=== PATIENT | female | born 1935 | race Caucasian/White ===

== ENCOUNTER 2016-11-30 21:20 | Inpatient (IN) | payer OTHER, MEDICAID ==
[~2016-11-30] VITALS: Ht 165.1 cm; Wt 60.3 kg
[~2016-11-30 21:20] MED LIST: ASPI81CT89 PO; DONE10TA3 PO; MEMA10TA PO
[2016-11-30 21:21] VITALS: BP 131/76
--- NOTE | 2016-11-30 21:33 | NUR ---
LYNN ADAMSR TO ER BED 8
--- NOTE | 2016-11-30 21:40 | NUR ---
PT IS 81/F BIB DAUGHTER TO ED WITH C/O DIZZINESS , DIFF OF BREATHING , WEAKNESS STARTED TODAY 1000 HOURS, CHEST PAIN IN THE MORNING. DENIES N/V/D; SKIN IS PINK/WARM/DRY; AAOX4 WITH EVEN AND STEADY GAIT; LUNGS CLEAR BL; HR EVEN AND REGULAR; PT DENIES ANY FEVER OR COUGH AT THIS TIME; PATIENT STATES PAIN OF 0/10 AT THIS TIME; VSS; PATIENT POSITIONED FOR COMFORT; HOB ELEVATED; BEDRAILS UP X2; BED DOWN. ER MD MADE AWARE OF PT STATUS.
--- NOTE | 2016-11-30 21:43 | NUR ---
Patient being evaluated by physician.
[2016-11-30] MEDS ORDERED: NACL 0.9% 1,000 ML IV ONE ×2 (21:47→23:50)
[2016-11-30 22:14] LABS: BASOPHILS # (AUTO) 0.2 K/uL (0.00-0.22); BASOPHILS % (AUTO) 2.6 % (0.0-2.0); EOSINOPHILS # (AUTO) 0.1 K/uL (0-0.4); EOSINOPHILS % (AUTO) 0.9 % (0.0-4.0); HEMATOCRIT 37.2 % (36-48); HEMOGLOBIN 11.8 g/dL (12.0-16.0); LYMPHOCYTES # (AUTO) 1.9 K/uL (2.5-16.5); LYMPHOCYTES % (AUTO) 28.2 % (20.5-51.1); MEAN CORPUSCULAR HEMOGLOBIN 28 pg (27-31); MEAN CORPUSCULAR HGB CONC 32 g/dL (33-37); MEAN CORPUSCULAR VOLUME 87 fL (80-94); MONOCYTES # (AUTO) 0.3 K/uL (0.8-1.0); MONOCYTES % (AUTO) 4.7 % (1.7-9.3); NEUTROPHILS # (AUTO) 4.1 K/uL (1.8-7.7); PLATELET COUNT (AUTO) 291 K/uL (140-450); RED BLOOD CELL COUNT(AUTO) 4.28 MIL/uL (4.20-5.40); RED CELL DISTRIBUTION WIDTH 15.9 % (11.6-13.7); WHITE BLOOD COUNT (AUTO) 6.6 K/uL (4.8-10.8)
[2016-11-30 22:26] LABS: ALANINE AMINOTRANSFERASE 15 U/L (14-59); ALBUMIN 3.5 g/dL (3.4-5.0); ALKALINE PHOSPHATASE 93 U/L (46-116); ANION GAP 15.8 (8-16); ASPARTATE AMINOTRANSFERASE 21 U/L (15-37); CALCIUM 8.9 mg/dL (8.5-10.1); CARBON DIOXIDE 25.3 mmol/L (21-32); CHLORIDE 105 mmol/L (98-107); CREATININE 1.1 mg/dL (0.6-1.3); GLUCOSE 107 mg/dL (74-106); POTASSIUM 4.1 mmol/L (3.5-5.1); PROTHROMBIN TIME 10.3 secs (10.8-13.4); SODIUM SERUM 142 mmol/L (136-145); TOTAL BILIRUBIN 0.4 mg/dL (0.0-1.0); TOTAL PROTEIN, SERUM 8.5 g/dL (6.4-8.2); UREA NITROGEN, BLOOD 16 mg/dL (7-18)
[2016-11-30 22:29] LABS: LACTIC ACID 2.1 mmol/L (0.4-2.0)
--- NOTE | 2016-11-30 23:15 | NUR ---
PT APPEARS TO BE RESTING IN BED COMFORTABLY. NO SOB NOTED AT THIS TIME. WILL CONTINUE TO MONITOR.
[2016-11-30 23:28] LABS: BILIRUBIN,URINE NEGATIVE (NEGATIVE); BLOOD, URINE NEGATIVE (NEGATIVE); COLOR,URINE YELLOW (YELLOW); LEUKOCYTE ESTERASE ,URINE TRACE (NEGATIVE); NITRITE, URINE NEGATIVE (NEGATIVE); PH,URINE 7.5 (5.0-9.0); PROTEIN,URINE NEGATIVE (NEGATIVE); UGLUCOSE NEGATIVE (NEGATIVE)
[2016-11-30 23:42] LABS: APPEARANCE,URINE HAZY (CLEAR)
[2016-11-30 23:43] LABS: BACTERIA,URINE 3+ /HPF (None Seen); MUCUS,URINE 4+ /LPF (None Seen); RBC,URINE 0-5 (RARE) /HPF (0-5); SQUAMOUS EPITHELIAL CELL,UR 0-3 /LPF (0-3 (FEW)); URINE AMORPHOUS URATE 3+ /HPF (None Seen)
[2016-11-30] MEDS ORDERED: LEVOFLOXACIN 750 MG/D5W PREMIX 150 ML IV ONE (23:50)
[2016-12-01] MEDS ORDERED: ASPIRIN 325 MG TAB PO ONE
--- NOTE | 2016-12-01 00:26 | NUR ---
Patient will be admitted to care of DR MILLER. Admited to TELE. Will go to room 122B. Belongings list completed. Report to VIN JUNE.
--- NOTE | 2016-12-01 00:45 | NUR ---
PT ADMITTED TO UNIT FROM ED, PT BROUGHT VIA GURNEY, PT ABLE TO AMBULATE TO BED WITH ASSIST. PT IS AAOX4 ON ROOM AIR, NO SOB OR SIGN OF DISTRESS AT THIS TIME. SKIN INTACT, IV TO RAC PATENT AND INTACT, PT CONNECTED TO TELE MONITOR, ORIENTED TO ROOM AND CALL LIGHT. PTS DAUGHTER AT BEDSIDE, PT DENIES PAIN AT THIS TIME. PTS DAUGHTER STATED PATIENT WILL SOMETIMES WAKE UP IN MIDDLE OF NIGHT AND FORGET WHERE SHE IS AT, BED ALARM SET, INSTRUCTED PATIENT IF SHE NEEDS TO USE RESTROOM TO USE CALL LIGHT, PT VERBALIZED UNDERSTANDING. DISCUSSED PLAN OF CARE WITH PATIENT, PT AND DAUGHTER VERBALIZED UNDERSTANDING, SAFETY MEASURES CHECKED, CALL LIGHT WITHIN REACH. WILL CONTINUE TO MONITOR.
--- NOTE | 2016-12-01 02:10 | NUR ---
ASSISTED PATIENT UP TO RESTROOM, STEADY GAIT, ASSISTED PT BACK TO BED, PT RESTING COMFORTABLE, WILL CONTINUE TO CLOSELY MONITOR.
[2016-12-01 04:00] VITALS: BP 112/61
--- NOTE | 2016-12-01 04:20 | NUR ---
VITAL SIGNS STABLE, NO SIGN OF DISTRESS, CALL LIGHT WITHIN REACH. WILL CONTINUE TO MONITOR.
[2016-12-01] MEDS ORDERED: MORPHINE SULFATE 2 MG/ML SYR IVP PRN (04:45)
[2016-12-01] MEDS ORDERED: oxyCODONE/APAP 5/325 MG 1 TAB TAB PO PRN (04:45)
[2016-12-01] MEDS ORDERED: HYDROcodone/APAP 7.5/325 MG 1 TAB PO PRN (04:45)
[2016-12-01] MEDS ORDERED: LORazepam 1 MG TAB PO PRN (04:45)
[2016-12-01] MEDS ORDERED: HYDROmorphone 1 MG/ML AMP IVP PRN ×2 (04:45)
[2016-12-01] MEDS ORDERED: ONDANSETRON 4 MG/2 ML VIAL IM/IVP PRN (04:45)
[2016-12-01] MEDS ORDERED: DOCUSATE SODIUM 100 MG GELCAP PO PRN (04:45)
[2016-12-01] MEDS ORDERED: ACETAMINOPHEN 325 MG TAB PO PRN (04:45)
[2016-12-01] MEDS ORDERED: ZOLPIDEM 5 MG TAB PO PRN (04:45)
[2016-12-01 06:20] LABS: AMPHETAMINE, URINE NEG. ng/ml (NEG <=1000); BARBITURATE, URINE NEG. ng/ml (NEG <=200); BENZODIAZEPINE, URINE NEG. ng/mL (NEG <=200); CANNABINOID, URINE NEG. ng/mL (NEG <=50); COCAINE, URINE NEG. ng/mL (NEG <=300); OPIATE, URINE NEG. ng/mL (NEG <=2000); PHENCYCLIDINE SCREEN,URINE NEG. ng/mL (NEG <=25)
[2016-12-01] MEDS: NACL 0.9% 1,000 ML IV SCH ×2 (06:23→21:54)
[2016-12-01 06:39] LABS: INR 1.1 (0.8-1.2); PARTIAL THROMBOPLASTIN TIME 25.6 secs (22-35.6); PROTHROMBIN TIME 11.2 secs (10.8-13.4)
[2016-12-01 06:43] LABS: CHOL/HDL RATIO 2.8 (1-4.5); MAGNESIUM 1.8 mg/dL (1.8-2.4); THYROID STIMULATING HORMONE 2.43 uIU/mL (0.34-3.74)
--- NOTE | 2016-12-01 07:30 | NUR ---
ENDORSED PATIENT TO DAY RN AT BEDSIDE, PATIENT IN STABLE CONDITION
--- NOTE | 2016-12-01 07:31 | NUR ---
PT AWAKE ALERT AND ORIENTED X4, UPPER SORBIAN SPEAKING. BREATHING EVENLY AND UNLABORED. NO SIGNS OF ACUTE DISTRESS. SKIN IS WARM AND DRY. NO C/O ANY BOWEL BLADDER DISCOMFORT. DENIES OF ANY PAIN OR DISCOMFORT. ALL NEEDS ATTENDED. SAFETY PRECAUTIONS MAINTAINED. CALL LIGHT WITHIN REACH.
[2016-12-01 08:00] VITALS: BP 113/66
[2016-12-01] MEDS: PANTOPRAZOLE 40 MG INJ VIAL IVP SCH (08:21)
[2016-12-01] MEDS ORDERED: ALBUTEROL SULFATE/IPRATROPIU 3 ML SOL IH PRN (11:20)
--- NOTE | 2016-12-01 11:42 | NUR ---
FAXED INITIAL REVEIW TO [facility] [phone] PHONE ALEX [phone]
[2016-12-01 11:47] VITALS: BP 100/55
--- NOTE | 2016-12-01 11:47 | NUR ---
NEW ORDERS RECEIVED FROM DR. ERICKSON, NOTED AND CARRIED OUT.
[2016-12-01] MEDS ORDERED: MEMANTINE 10 MG TAB PO SCH (12:25)
--- NOTE | 2016-12-01 13:47 | NUR ---
PATIENT HAS BEEN SCREENED AND CATEGORIZED MODERATE NUTRITION RISK. PATIENT WILL BE SEEN WITHIN 3-5 DAYS OF ADMISSION. 12/03/16-12/05/[address]
[2016-12-01 16:00] VITALS: BP 103/56
--- NOTE | 2016-12-01 16:04 | NUR ---
NEW ORDERS RECEIVED FROM DR. ERICKSON, NOTED AND CARRIED OUT.
--- NOTE | 2016-12-01 19:26 | NUR ---
P AWAKE AND RESPONSIVE, NO SIGNS OF ACUTE DISTRESS. ENDORSED TO ONCOMING IT SECURITY SPECIALIST NURSE FOR CONTINUITY OF CARE.
--- NOTE | 2016-12-01 19:30 | NUR ---
RECEIVED REPORT FROM DAY RN AT BEDSIDE, PATIENT SITTING UP IN BED VISITING FAMILY AT BEDSIDE, PT AAOX4 ON ROOM AIR, NO SOB OR SIGN OF DISTRESS AT THIS TIME, IV TO RIGHT AC PATENT AND INTACT, SKIN INTACT, DENIES PAIN AT THIS TIME, DISCUSSED PLAN OF CARE WITH PATIENT, PT VERBALIZED UNDERSTANDING. CALL LIGHT WITHIN REACH, WILL CONTINUE TO MONITOR
[2016-12-01 20:00] VITALS: BP 106/62
[2016-12-01] MEDS: METOPROLOL 25 MG TAB PO SCH (21:00)
[2016-12-01] MEDS: SIMVASTATIN 10 MG TAB PO SCH (21:00)
[2016-12-01] MEDS: DONEPEZIL 10 MG TAB PO SCH (21:07)
[2016-12-01] MEDS: LEVOFLOXACIN 250 MG/D5 PREMIX 50 ML IV SCH (21:08)
--- NOTE | 2016-12-01 21:10 | NUR ---
PM MEDS ADMINISTERED, LOPRESSOR NOT ADMINISTERED FOR DECREASED BP, PT REFUSED SIMVISTATIN STATED TOO MANY PILLS. PATIENT TOLERATED OTHERS WELL, PT STATED SHE HAD HEADACHE, ADMINISTERED TYLENOL, ASSISTED UP TO RESTROOM, ASSISTED BACK TO BED, CALL LIGHT WITHIN REACH. WILL CONTINUE TO MONITOR, BED ALARM ON.
--- NOTE | 2016-12-01 22:30 | NUR ---
PT RESTING IN BED, NO SOB OR SIGN OF DISTRESS, CALL LIGHT WITHIN REACH WILL CONTINUE TO MONITOR.
[2016-12-02] VITALS (7 sets, daily range): BP systolic 105–139; BP diastolic 58–80
--- NOTE | 2016-12-02 00:10 | NUR ---
VITAL SIGNS STABLE, NO SOB OR SIGN OF DISTRESS, CALL LIGHT WITHIN REACH. WILL CONTINUE TO MONITOR.
--- NOTE | 2016-12-02 02:30 | NUR ---
PT SLEEPING, NO SIGN OF DISTRESS, WILL CONTINUE TO MONITOR.
--- NOTE | 2016-12-02 04:05 | NUR ---
VITAL SIGN STABLE, NO SIGN OF DISTRESS, CALL LIGHT WITHIN REACH. WILL CONTINUE TO MONITOR
--- NOTE | 2016-12-02 05:10 | NUR ---
PT GOT UP TO USE RESTROOM, PULLED OUT IV, PT REFUSING TO HAVE ANOTHER ONE AT THIS TIME, EXPLAINED TO PATIENT THE IMPORTANCE OF HAVING ONE, PT STILL REFUSING. PT STATED "ITS TOO MUCH PAIN, IM GOING HOME TODAY". CHARGE NURSE AWARE, CHARGE NURSE TALKED TO PT, PT STILL REFUSING, LET MD WOLFF KNOW, TALKED TO PATIENT, PT STILL REFUSING, MD STATED TO LET PT CALM DOWN A LITTLE. WILL CONTINUE TO MONITOR AND ATTEMPT TO START NEW IV.
--- NOTE | 2016-12-02 05:36 | NUR ---
PT STILL REFUSING IV, PT REPEATEDLY STATING SHE IS GOING HOME TODAY AND DOES NOT NEED HER IV. CHARGE NURSE AWARE.
[2016-12-02 05:38] LABS: BASOPHILS # (AUTO) 0.1 K/uL (0.00-0.22); BASOPHILS % (AUTO) 1.4 % (0.0-2.0); EOSINOPHILS # (AUTO) 0.1 K/uL (0-0.4); HEMATOCRIT 31.4 % (36-48); LYMPHOCYTES # (AUTO) 2.5 K/uL (2.5-16.5); LYMPHOCYTES % (AUTO) 41.5 % (20.5-51.1); MEAN CORPUSCULAR HEMOGLOBIN 28 pg (27-31); MEAN CORPUSCULAR HGB CONC 32 g/dL (33-37); MEAN CORPUSCULAR VOLUME 87 fL (80-94); MONOCYTES # (AUTO) 0.5 K/uL (0.8-1.0); NEUTROPHILS # (AUTO) 2.8 K/uL (1.8-7.7); NEUTROPHILS % (AUTO) 48.1 % (42.2-75.2); PLATELET COUNT (AUTO) 247 K/uL (140-450); RED BLOOD CELL COUNT(AUTO) 3.63 MIL/uL (4.20-5.40); RED CELL DISTRIBUTION WIDTH 15.6 % (11.6-13.7); WHITE BLOOD COUNT (AUTO) 5.9 K/uL (4.8-10.8)
[2016-12-02 05:48] LABS: ANION GAP 14.7 (8-16); CARBON DIOXIDE 21.9 mmol/L (21-32); CHLORIDE 110 mmol/L (98-107); CREATININE 0.9 mg/dL (0.6-1.3); GLUCOSE 91 mg/dL (74-106); POTASSIUM 3.6 mmol/L (3.5-5.1); SODIUM SERUM 143 mmol/L (136-145); UREA NITROGEN, BLOOD 10 mg/dL (7-18)
--- NOTE | 2016-12-02 07:24 | NUR ---
ASSUMED CONTINUITY OF CARE. NO SIGNS AND SYMPTOMS OF ACUTE DISTRESS NOTED. INITIAL ASSESSMENT DONE. NO IV ACCESS. REFUSED IV INSERTION. KEEP COMFORTABLE ON BED. EXPLAINED DIAGNOSIS, PLAN OF CARE, PAIN MANAGEMENT TEACHING, USE OF CALL LIGHT/BED/TV/BATHROOM. VERBALIZED UNDERSTANDING. FALL PRECAUTION APPLIED. CALL LIGHT WITHIN REACH.
--- NOTE | 2016-12-02 07:34 | NUR ---
ENDORSED PATIENT TO DAY CTE TEACHER AT BEDSIDE, PATIENT IN STABLE CONDITION, CTE TEACHER AWARE OF NO IV ACCESS. PT STILL REFUSING.
[2016-12-02] MEDS ORDERED: LORazepam 2 MG/ML VIAL IVP ONE (08:20)
--- NOTE | 2016-12-02 08:20 | NUR ---
PT CAME FOR PT. PT TREATMENT. TOLERATED WELL. NO SOB, NOTED.
[2016-12-02] MEDS: METOPROLOL 25 MG TAB PO SCH ×2 (08:27→20:35)
[2016-12-02] MEDS: LISINOPRIL 5 MG TAB PO SCH (08:27)
[2016-12-02] MEDS: LACTOBACILLUS RHAMNOSUS GG 1 EACH CAP PO SCH (08:27)
[2016-12-02] MEDS: ASPIRIN 81 MG TAB.CHEW PO SCH (08:27)
[2016-12-02] MEDS: MEMANTINE 10 MG TAB PO SCH (08:27)
[2016-12-02] MEDS: PANTOPRAZOLE 40 MG INJ VIAL IVP SCH (08:32)
[2016-12-02] MEDS: RIVASTIGMINE TP SCH (08:32)
[2016-12-02] MEDS ORDERED: NOREPINEPHRINE 4 MG in DEXTROSE 5% 250 ML IV PRN (08:40)
[2016-12-02] MEDS ORDERED: COMMUNICATION ORDER MC PRN (09:00)
[2016-12-02] MEDS ORDERED: MEMANTINE 10 MG TAB PO SCH (09:00)
[2016-12-02 09:21] LABS: T4 (THYROXINE) 4.3 ug/dL (4.5-12.0)
--- NOTE | 2016-12-02 10:42 | NUR ---
CM NOTE FAXED CONCURRENT REVIEW TO [facility] [phone] PHONE ALEX [phone]
--- NOTE | 2016-12-02 12:00 | NUR ---
VITALS SIGNS STABLE. NO C/O PAIN. WILL MONITOR.
[2016-12-02] MEDS: NACL 0.9% 1,000 ML IV SCH (14:05)
[2016-12-02 14:07] LABS: HEMOGLOBIN A1C 5.8 % (4.8-5.6)
--- NOTE | 2016-12-02 19:20 | NUR ---
BEDSIDE REPORT GIVEN TO NOEL MORRIS. IN STABLE CONDITION.
--- NOTE | 2016-12-02 19:30 | NUR ---
ASSUMED CARE OF PATIENT, AWAKE, ALERT AND ORIENTED WITH PERIOD OF FORGETFUL. FAMILY AT BEDSIDE. CALL LIGHT WITHIN REACH.
--- NOTE | 2016-12-02 20:00 | NUR ---
CARE BOARD UPDATED NOTED. PLAN OF CARE DISCUSSED WITH PATIENT AND FAMILY MEMBER, VERBALIZED UNDERSTANDING WELL. VITAL SIGNS STABLE. AFEBRILE NOTED. CALL LIGHT WITHIN REACH.
[2016-12-02] MEDS: LEVOFLOXACIN 250 MG/D5 PREMIX 50 ML IV SCH (20:25)
[2016-12-02] MEDS: DONEPEZIL 10 MG TAB PO SCH (20:34)
[2016-12-02] MEDS: SIMVASTATIN 10 MG TAB PO SCH (20:35)
--- NOTE | 2016-12-02 23:48 | NUR ---
GOT CONFUSED, OUT OF THE ROOM AGITATED WITH PERSONAL BELONGINGS AND WANTING TO LEAVE TO GO HOME. EXPLAINED TO PATIENT AND REORIENTED, ESCORTED BACK TO ROOM-122.
[2016-12-03] MEDS ORDERED: LEVOFLOXACIN 750 MG/D5W PREMIX 150 ML IV SCH
[2016-12-03 04:06] VITALS: BP 124/56
--- NOTE | 2016-12-03 04:08 | NUR ---
SLEEPING WELL. NO COMPLAINS. CALL LIGHT WITHIN REACH.
[2016-12-03] MEDS: NACL 0.9% 1,000 ML IV SCH (06:45)
--- NOTE | 2016-12-03 07:30 | NUR ---
RECEIVED PATIENT REPORT AT BEDSIDE FROM NIGHT NURSE. PATIENT IS ABLE TO FOLLOW COMMANDS AND IS AAOX2. PATIENT SHOWS NO S/S OF DISTRESS ON ROOM AIR. PATIENT REFUSES IV ACCESS. PATIENT SKIN IS INTACT. EXPLAINED PLAIN OF CARE TO PATIENT. PATIENT VERBALIZED UNDERSTANDING. PATIENT ON TELE MONITORING. PATIENT BED IS LOWERED WITH CALL LIGHT WITHIN REACH. WILL CONTINUE TO MONITOR.
--- NOTE | 2016-12-03 07:30 | NUR ---
ENDORSED CARE AT BEDSIDE WITH BERYL BANUELOS, PATIENT STABLE CONDITION.
[2016-12-03 08:00] VITALS: BP 126/80
[2016-12-03] MEDS ORDERED: LEVOFLOXACIN 250 MG TAB PO SCH (09:00)
[2016-12-03] MEDS: PANTOPRAZOLE 40 MG INJ VIAL IVP SCH (09:00)
[2016-12-03] MEDS: LISINOPRIL 5 MG TAB PO SCH (09:15)
[2016-12-03] MEDS: LACTOBACILLUS RHAMNOSUS GG 1 EACH CAP PO SCH (09:15)
[2016-12-03] MEDS: ASPIRIN 81 MG TAB.CHEW PO SCH (09:15)
[2016-12-03] MEDS: MEMANTINE 10 MG TAB PO SCH (09:15)
[2016-12-03] MEDS: METOPROLOL 25 MG TAB PO SCH (09:16)
--- NOTE | 2016-12-03 09:16 | NUR ---
WHILE ADMINISTERING MEDICATIONS PATIENT STATED SHE HAS NOT HAD ANYTHING TO EAT AND IS C/O ABD PAIN. WHEN ASKED IF SHE WOULD LIKE PAIN MEDICATION, PATIENT REFUSES. PATIENT ENCOURAGED TO TAKE MEDICATIONS HOWEVER SHE REFUSES. PATIENT MEDICATIONS ARE ALREADY OPENED WILL TRY AGAIN TO ENCOURAGE ADMINISTRATION OF MEDICATIONS.
[2016-12-03] MEDS: RIVASTIGMINE TP SCH (09:33)
--- NOTE | 2016-12-03 09:45 | NUR ---
PATIENT CONTINUE TO REFUSE ORAL MEDICATIONS. WILL DISCARD.
[2016-12-03] MEDS ORDERED: SIMV20TA1 PO (10:10)
--- NOTE | 2016-12-03 10:10 | NUR ---
CM NOTE FAXED CONCURRENT REVIEW AND ORDER FOR HOME HEALTH TO [facility] [phone] PHONE ALEX [phone]
--- NOTE | 2016-12-03 10:30 | NUR ---
PATIENT BEING SEEN BY DR. ZIEGLER SHOWS NO S/S OF DISTRESS ON ROOM AIR. PATIENT C/O ABD PAIN. DR AWARE. DR STATES OKAY TO DISCHARGE.
[2016-12-03] MEDS ORDERED: LEVO750T2 PO (10:37)
[2016-12-03] MEDS ORDERED: DONE10TA3 PO (11:01)
[2016-12-03 12:00] VITALS: BP 127/70
--- NOTE | 2016-12-03 12:00 | NUR ---
PATIENT CALLED FAMILY FOR COMPLIANCE ADMINISTRATOR TODAY TO DISCHARGE. PATIENT IS IN BED AND SHOWS NO S/S OF DISTRESS ON ROOM AIR.
--- NOTE | 2016-12-03 13:07 | NUR ---
KENNY ESPINOSA SPOKE WITH KENNY JOHNSON OF [facility] [phone] AND SHE SAID PATIENT'S HOME HEALTH HAS BEEN SET UP WITH [facility] [phone], AUTHORIZATION# [id number], TO START WHEN PATIENT IS DISCHARGED. FAXED THE ORDER TO [facility] [phone]. SPOKE WITH CHATO OF [facility] [phone] WHO CONFIRMED THAT THEY RECEIVED THE REFERRAL AND INFORMED HER THAT PATIENT WILL BE DISCHARGED TODAY. NURSE KHUSHBU MENARD
--- NOTE | 2016-12-03 13:10 | NUR ---
SPOKE WITH PATIENT FAMILY THEY STATE THEY ARE ON THEIR WAY.
--- NOTE | 2016-12-03 13:30 | NUR ---
PT IS SITTING IN CHAIR AND SHOWS NO S/S OF DISTRESS ON ROOM AIR. WILL CONTINUE TO MONITOR.
--- NOTE | 2016-12-03 14:40 | NUR ---
PATIENT HAS BEEN DISCHARGED. ALL DISCHARGE INSTRUCTIONS AND PRESCRIPTIONS GIVEN TO PATIENT AND FAMILY MEMBER. ALL PAPERWORK SIGNED BY PATIENTS DAUGHTER. PATIENT AGREED TO HAVE HER DAUGHTER SIGN FOR HER. ALL BELONGINGS AND PRESCRIPTIONS IN PATIENT POSSESSION. WRISTBANDS AND TELE MONITOR REMOVED. PATIENT AMB TO WHEELCHAIR WITH STEADY GAIT. PATIENT LEFT OUT OF UNIT WITH FAMILY PRESENT AT SIDE. PATIENT IN STABLE CONDITION.
== END 2016-12-03 14:40 | disposition home or self-care (01) | DRG 56 ==
LOC: MED 21:20 → MTU 12-01 00:04
PROVIDERS: ADMIT Family Medicine; ATTEND Family Medicine
DX: G30.9 Alzheimer's disease, unspecified (principal); G93.41 Metabolic encephalopathy; F02.81 Dementia in other diseases classified elsewhere, unspecified severity, with behavioral disturbance; N39.0 Urinary tract infection, site not specified; M94.0 Chondrocostal junction syndrome [Tietze]; R73.03 Prediabetes; E78.00 Pure hypercholesterolemia, unspecified; J45.909 Unspecified asthma, uncomplicated; Z86.73 Personal history of transient ischemic attack (TIA), and cerebral infarction without residual deficits; Z88.0 Allergy status to penicillin; Z91.14 Patient's other noncompliance with medication regimen; Z74.01 Bed confinement status; Z98.51 Tubal ligation status; Z79.82 Long term (current) use of aspirin; Z79.899 Other long term (current) drug therapy; Z87.01 Personal history of pneumonia (recurrent)
CPT/HCPCS: 36415; 71010; 80048; 80053; 80305; 81001; 82150; 82550; 83036; 83605; 83690; 83735; 83880; 84100; 84436; 84443; 84479; 84484; 85025; 85610; 85730; 87040; 87081; 87086; 93005; 96360; 96361; 99285; C9113; J1956; J3490; J7030; J7060; Q0092

== ENCOUNTER 2017-11-07 22:38 | Inpatient (IN) | payer OTHER, MEDICAID ==
[~2017-11-07] VITALS: Ht 160 cm; Wt 65.3 kg
[~2017-11-07 22:38] MED LIST changes: +DONE10TA10 PO; -DONE10TA3 PO; +LEVO750T2 PO; +SIMV20TA1 PO
[2017-11-07 22:42] VITALS: BP 130/81
--- NOTE | 2017-11-07 22:44 | NUR ---
TO BED # 6 AMBULATORY, REPORT GIVEN TO JC BANUELOS
--- NOTE | 2017-11-07 22:47 | NUR ---
Patient ambulated to bed 7 with family. RN evaluating patient at bedside.
--- NOTE | 2017-11-07 22:50 | NUR ---
PATIENT IS A 82 Y/O FEMALE WHO PRESENTS TO THE ED C/O CHEST PAIN. PT STATES THAT IT STARTED X30 MINUTES AGO. PT REPORTS 3/10 ACHING UPPER CHEST PAIN THAT DOES NOT RADIATE. PT REPORTS COUGH, DENIES N/V/D. PT AAOX4, RR EVEN/UNLABORED. PT REPOSITIONED FOR COMFORT, BED IN LOWEST POSITION. ER MD DR. WAGNER NOTIFIED. WILL CONTINUE TO MONITOR.
--- NOTE | 2017-11-07 22:53 | NUR ---
Dr. Jin evaluating patient at bedside.
[2017-11-07] MEDS ORDERED: NITROGLYCERIN 2% 1 GM PKT TP ONE (23:15)
[2017-11-07] MEDS ORDERED: MORPHINE SULFATE 4 MG/ML SYR IVP ONE (23:15)
[2017-11-07 23:30] LABS: BASOPHILS # (AUTO) 0.1 K/uL (0.00-0.22); BASOPHILS % (AUTO) 1.3 % (0.0-2.0); EOSINOPHILS # (AUTO) 0.1 K/uL (0-0.4); EOSINOPHILS % (AUTO) 1.8 % (0.0-4.0); HEMATOCRIT 30.2 % (36-48); HEMOGLOBIN 9.9 g/dL (12.0-16.0); LYMPHOCYTES # (AUTO) 2.4 K/uL (2.5-16.5); LYMPHOCYTES % (AUTO) 40.1 % (20.5-51.1); MEAN CORPUSCULAR HEMOGLOBIN 26 pg (27-31); MEAN CORPUSCULAR HGB CONC 33 g/dL (33-37); MEAN CORPUSCULAR VOLUME 78.6 fL (80-94); MONOCYTES # (AUTO) 0.5 K/uL (0.8-1.0); MONOCYTES % (AUTO) 8.5 % (1.7-9.3); NEUTROPHILS # (AUTO) 2.9 K/uL (1.8-7.7); NEUTROPHILS % (AUTO) 48.3 % (42.2-75.2); PLATELET COUNT (AUTO) 247 K/uL (140-450); RED BLOOD CELL COUNT(AUTO) 3.84 MIL/uL (4.20-5.40); RED CELL DISTRIBUTION WIDTH 16.9 % (11.6-13.7)
--- NOTE | 2017-11-07 23:32 | NUR ---
centura technical lead senior developer at bedside for CXR.
--- NOTE | 2017-11-07 23:35 | NUR ---
PT REFUSED MORPHINE.
[2017-11-07 23:39] LABS: ANION GAP 10.6 (8-16); CARBON DIOXIDE 28.2 mmol/L (21-32); CHLORIDE 105 mmol/L (98-107); CREATININE 1.1 mg/dL (0.6-1.3); GLUCOSE 92 mg/dL (74-106); POTASSIUM 3.8 mmol/L (3.5-5.1); SODIUM SERUM 140 mmol/L (136-145); UREA NITROGEN, BLOOD 25 mg/dL (7-18)
[2017-11-07 23:47] LABS: ALBUMIN 3.2 g/dL (3.4-5.0); ASPARTATE AMINOTRANSFERASE 17 U/L (15-37); TOTAL BILIRUBIN 0.2 mg/dL (0.0-1.0)
[2017-11-07 23:53] LABS: CREATINE KINASE MB 1.1 ng/mL (0-3.6)
[2017-11-07 23:54] LABS: CHOL/HDL RATIO 2.8 (1-4.5)
[2017-11-07] MEDS ORDERED: MEMA10TA PO (23:57)
[2017-11-07] MEDS ORDERED: HAL1 PO (23:57)
[2017-11-08 00:08] LABS: APPEARANCE,URINE CLEAR (CLEAR); BILIRUBIN,URINE NEGATIVE (NEGATIVE); BLOOD, URINE NEGATIVE (NEGATIVE); COLOR,URINE YELLOW (YELLOW); LEUKOCYTE ESTERASE ,URINE 1+ (NEGATIVE); NITRITE, URINE NEGATIVE (NEGATIVE); UGLUCOSE NEGATIVE (NEGATIVE)
[2017-11-08 00:17] LABS: RBC,URINE 0-5 (RARE) /HPF (0-5)
[2017-11-08 00:18] LABS: WBC,URINE 60-80 /HPF (0-5)
--- NOTE | 2017-11-08 00:35 | NUR ---
PATIENT IS RESTING AT THIS TIME. NO SIGNS OF DISTRESS.
[2017-11-08] MEDS ORDERED: cefTRIAXone 1,000 MG VIAL ONE (00:52)
[2017-11-08] MEDS ORDERED: ONDANSETRON 4 MG/2 ML VIAL IM/IVP PRN (01:00)
[2017-11-08] MEDS ORDERED: MORPHINE SULFATE 2 MG/ML SYR IVP PRN (01:00)
[2017-11-08] MEDS ORDERED: ACETAMINOPHEN 325 MG TAB PO PRN (01:00)
[2017-11-08] MEDS ORDERED: DOCUSATE SODIUM 100 MG GELCAP PO PRN (01:00)
[2017-11-08] MEDS ORDERED: HYDROcodone/APAP 7.5/325 MG 1 TAB PO PRN (01:00)
[2017-11-08 01:26] LABS: PROTHROMBIN TIME 10.4 secs (10.8-13.4)
[2017-11-08 01:31] LABS: BARBITURATE, URINE NEG. ng/ml (NEG <=200); BENZODIAZEPINE, URINE NEG. ng/mL (NEG <=200); CANNABINOID, URINE NEG. ng/mL (NEG <=50); COCAINE, URINE NEG. ng/mL (NEG <=300); OPIATE, URINE NEG. ng/mL (NEG <=2000); PHENCYCLIDINE SCREEN,URINE NEG. ng/mL (NEG <=25)
--- NOTE | 2017-11-08 01:31 | NUR ---
PT ARRIVED AT UNIT VIA GURNEY, PT AMBULATED TO BED, TOLERATED WELL, PT STABLE, NO DISTRESS NOTED, REPORT RECEIVED FROM ED NURSE NANDA BANUELOS, IV TO L AC 20G PATENT, INTACT, PT ON ROOM AIR NO SOB, PT DENIES ANY PAIN AT THIS MOMENT, ORIENT PT TO ROOM, CALL LIGHT, AND PHONE, MRSA SWAB TAKEN, INITIAL ASSESSMENT DONE, ALL SAFETY PRECAUTION MET, WILL CONTINUE TO MONITOR.
--- NOTE | 2017-11-08 01:35 | NUR ---
Patient will be admitted to care of DR. REDDING. Admited to TELE. Will go to room 110A. Belongings list completed. Report to EDUARDO BANUELOS.
[2017-11-08 01:39] LABS: CHOL/HDL RATIO 2.9 (1-4.5); FREE T4 (FREE THYROXINE) 0.84 ng/dL (0.76-1.46); MAGNESIUM 1.7 mg/dL (1.8-2.4); PHOSPHORUS 3.8 mg/dL (2.5-4.9); THYROID STIMULATING HORMONE 3.33 uIU/mL (0.34-3.74)
[2017-11-08 01:50] VITALS: BP 109/46
[2017-11-08] MEDS: NACL 0.9% 1,000 ML IV SCH ×2 (02:00→17:37)
[2017-11-08] MEDS ORDERED: NITROGLYCERIN 0.4 MG TAB SL PRN (02:00)
[2017-11-08] MEDS ORDERED: ALBUTEROL SULFATE/IPRATROPIU 3 ML SOL IH PRN (02:40)
--- NOTE | 2017-11-08 03:28 | NUR ---
PT LEFT UNIT TO RADIOLOGY FOR CT CHEST ANGIO W/WO CONTRAST, PT IN STABLE CONDITION, NO DISTRESS NOTED.
[2017-11-08 04:00] VITALS: BP 107/60
--- NOTE | 2017-11-08 04:08 | NUR ---
PT ARRIVED BACK FROM CT. PT STABLE, NO DISTRESS NOTED, CALL LIGHT WITHIN REACH, WILL CONTINUE TO MONITOR.
--- NOTE | 2017-11-08 07:22 | NUR ---
RECEIVED REPORT FROM THERMOFORMING OPERATOR RN. PT RESTING IN BED. A/O X4, VERBALIZES NEEDS. SKIN DRY AND WARM TO TOUCH. LUNGS CLEAR ON AUSCULTATION. ABDOMEN SOFT, ROUND AND NON-TENDER. ACTIVE BOWEL SOUND. RIGHT AC 20 G, INTACT. NS RUNNING AT 60 ML/HR. AMBULATORY. SCDS ON PLACE. DENIES PAIN. NO ACUTE RESP DISTRESS NOTED. KEPT HOB ELEVATED. BED IN LOW POSITION, LOCKED. WILL CONTINUE TO MONITOR.
--- NOTE | 2017-11-08 07:22 | NUR ---
ENDORSED PT TO DAY SHIFT NURSE CALLY BANUELOS, PT IN STABLE CONDITION, NO DISTRESS NOTED, CALL LIGHT WITHIN REACH.
[2017-11-08 08:00] VITALS: BP 97/54
[2017-11-08 08:29] LABS: BASOPHILS % (AUTO) 0.5 % (0.0-2.0); EOSINOPHILS # (AUTO) 0.1 K/uL (0-0.4); EOSINOPHILS % (AUTO) 1.6 % (0.0-4.0); HEMATOCRIT 26.3 % (36-48); HEMOGLOBIN 8.7 g/dL (12.0-16.0); LYMPHOCYTES % (AUTO) 38.2 % (20.5-51.1); MEAN CORPUSCULAR HEMOGLOBIN 26 pg (27-31); MEAN CORPUSCULAR HGB CONC 33 g/dL (33-37); MEAN CORPUSCULAR VOLUME 78.7 fL (80-94); MONOCYTES # (AUTO) 0.4 K/uL (0.8-1.0); MONOCYTES % (AUTO) 8.5 % (1.7-9.3); NEUTROPHILS # (AUTO) 2.6 K/uL (1.8-7.7); NEUTROPHILS % (AUTO) 51.2 % (42.2-75.2); PLATELET COUNT (AUTO) 227 K/uL (140-450); RED BLOOD CELL COUNT(AUTO) 3.34 MIL/uL (4.20-5.40); WHITE BLOOD COUNT (AUTO) 5.2 K/uL (4.8-10.8)
[2017-11-08 08:48] LABS: ANION GAP 12.3 (8-16); CHLORIDE 108 mmol/L (98-107); GLUCOSE 92 mg/dL (74-106); POTASSIUM 4.3 mmol/L (3.5-5.1); SODIUM SERUM 144 mmol/L (136-145); UREA NITROGEN, BLOOD 23 mg/dL (7-18)
[2017-11-08] MEDS: FERROUS SULFATE 325 MG TABEC PO SCH (08:57)
[2017-11-08] MEDS: METOPROLOL 25 MG TAB PO SCH ×2 (08:58→20:22)
[2017-11-08] MEDS: ECOTRIN 81 MG TABEC PO SCH (08:58)
[2017-11-08] MEDS: MAGNESIUM OXIDE 400 MG TAB PO SCH (08:59)
--- NOTE | 2017-11-08 08:59 | NUR ---
METOPROLOL AND LISINOPRIL NOT ADMINISTERED DUE TO LOW BP: 97/54. NURSE MADE AWARE.
[2017-11-08] MEDS ORDERED: LISINOPRIL 5 MG TAB PO SCH (09:00)
--- NOTE | 2017-11-08 11:41 | NUR ---
PT SLEEPING IN BED COMFORTABLY AT THIS TIME.
[2017-11-08] MEDS ORDERED: ASCORBIC ACID 500 MG TAB PO SCH (12:00)
[2017-11-08 12:01] VITALS: BP 91/46
[2017-11-08 16:00] VITALS: BP 109/59
--- NOTE | 2017-11-08 16:53 | NUR ---
ADMINISTERED MEDICATION PER ORDER. TOLERATING WELL. NO CHANGE IN LOC. WILL CONTINUE TO MONITOR.
[2017-11-08] MEDS ORDERED: ATORVASTATIN 20 MG TAB PO SCH (17:00)
--- NOTE | 2017-11-08 19:20 | NUR ---
RECEIVED REPORT FROM DAY SHIFT NURSE JUVE, PT IN BED WITH FAMILY AT BEDSIDE, NO SIGNS OF DISTRESS, CONNECTED BACK TO TELE SINCE PT REMOVED ELECTRODES. TOLD DURING REPORT THAT PT IS SHOWING SINGS OF CONFUSION, WILL CONTINUE TO MONITOR AND CONTINUE WITH FREQ CHECKS.
--- NOTE | 2017-11-08 19:20 | NUR ---
REPORT GIVEN TO CUSTODIAL MAINTENANCE WORKER RN FOR CONTINUITY OF CARE. PT ON STABLE CONDITION.
[2017-11-08 20:00] VITALS: BP 115/59
--- NOTE | 2017-11-08 20:22 | NUR ---
PT TOLERATED MEDICATION WELL, WILL CONTINUE TO MONITOR VS. WILL ENSURE FREQ CHECKS.
[2017-11-09] VITALS: BP 111/51
--- NOTE | 2017-11-09 00:19 | NUR ---
PLACED NEW IV ON LEFT HAND, 22 GAUGE, INTACT.
--- NOTE | 2017-11-09 02:10 | NUR ---
PT RESTING IN BED, CALL LIGHT WITHIN REACH, NO SIGNS OF DISTRESS.
[2017-11-09 04:00] VITALS: BP 104/59
--- NOTE | 2017-11-09 04:10 | NUR ---
PT IN BED, CALL LIGHT WITHIN REACH, WILL CONTINUE TO MONITOR AND CONTINUE FREQ CHECKS.
[2017-11-09 05:49] LABS: BASOPHILS % (AUTO) 0.2 % (0.0-2.0); EOSINOPHILS # (AUTO) 0.1 K/uL (0-0.4); EOSINOPHILS % (AUTO) 2.3 % (0.0-4.0); HEMATOCRIT 26.1 % (36-48); HEMOGLOBIN 8.7 g/dL (12.0-16.0); LYMPHOCYTES # (AUTO) 2.4 K/uL (2.5-16.5); LYMPHOCYTES % (AUTO) 48.4 % (20.5-51.1); MEAN CORPUSCULAR HEMOGLOBIN 26 pg (27-31); MEAN CORPUSCULAR HGB CONC 33 g/dL (33-37); MEAN CORPUSCULAR VOLUME 79.4 fL (80-94); MONOCYTES # (AUTO) 0.5 K/uL (0.8-1.0); NEUTROPHILS # (AUTO) 1.9 K/uL (1.8-7.7); NEUTROPHILS % (AUTO) 39.1 % (42.2-75.2); PLATELET COUNT (AUTO) 215 K/uL (140-450); RED BLOOD CELL COUNT(AUTO) 3.28 MIL/uL (4.20-5.40); RED CELL DISTRIBUTION WIDTH 16.9 % (11.6-13.7)
--- NOTE | 2017-11-09 06:26 | NUR ---
PT RESTING IN BED, WILL CONTINUE TO MONITOR, CALL LIGHT WITH IN REACH.
[2017-11-09 06:27] LABS: ANION GAP 12.9 (8-16); CHLORIDE 109 mmol/L (98-107); CREATININE 0.9 mg/dL (0.6-1.3); GLUCOSE 93 mg/dL (74-106); POTASSIUM 3.9 mmol/L (3.5-5.1); SODIUM SERUM 145 mmol/L (136-145); UREA NITROGEN, BLOOD 14 mg/dL (7-18)
--- NOTE | 2017-11-09 07:20 | NUR ---
ENDORSED PT TO DAY SHIFT NURSE SCHUYLER RN, PT STABLE, NO DISTRESS NOTED, CALL LIGHT WITHIN REACH.
--- NOTE | 2017-11-09 07:21 | NUR ---
RECEIVED REPORT FROM SUPPLY CRIB ATTENDANT NURSE. PATIENT LYING DOWN IN BED SLEEPING, AROUSABLE BY VOICE. NO DISTRESS NOTED. DENIES ANY PAIN. RESPIRATIONS EVEN, UNLABORED, ON ROOM AIR. AAOX4, CALM, COOPERATIVE, SKIN COLOR APPROPRIATE TO ETHNICITY, WARM TO TOUCH. SKIN IS INTACT. HAS DRY, NON-PRODUCTIVE COUGH. IV SITE INTACT, PATENT, RUNNING IVF PER MD ORDERS. LUNGS CTA ON ALL LOBES. ABDOMEN SOFT, NON-DISTENDED. REVIEWED PLAN OF CARE WITH PATIENT. PATIENT VERBALIZED UNDERSTANDING. SAFETY MEASURES IN PLACE, CALL LIGHT WITHIN REACH. WILL CONTINUE TO MONITOR.
[2017-11-09 08:00] VITALS: BP 108/62
[2017-11-09] MEDS: ECOTRIN 81 MG TABEC PO SCH (08:19)
[2017-11-09] MEDS: MAGNESIUM OXIDE 400 MG TAB PO SCH (08:19)
[2017-11-09] MEDS: METOPROLOL 25 MG TAB PO SCH (08:20)
[2017-11-09] MEDS: FERROUS SULFATE 325 MG TABEC PO SCH (08:20)
--- NOTE | 2017-11-09 08:25 | NUR ---
PATIENT SITTING DOWN IN BED WITH BREAKFAST TRAY IN FRONT. NO DISTRESS NOTED. DENIES ANY PAIN. SCHEDULED MEDICATIONS DUE GIVEN. SAFETY MEASURES IN PLACE, CALL LIGHT WITHIN REACH. WILL CONTINUE TO MONITOR.
[2017-11-09] MEDS ORDERED: ASCORBIC ACID 500 MG TAB PO SCH (09:00)
[2017-11-09] MEDS ORDERED: ATOR20TA40 PO (09:57)
[2017-11-09] MEDS ORDERED: FER325 PO (09:57)
[2017-11-09] MEDS ORDERED: ASPI-1173 PO (09:57)
[2017-11-09] MEDS ORDERED: VITC500 PO (09:57)
[2017-11-09] MEDS ORDERED: LEVO750T2 PO (09:59)
[2017-11-09] MEDS: NACL 0.9% 1,000 ML IV SCH (10:17)
--- NOTE | 2017-11-09 11:30 | NUR ---
PATIENT ABLE TO AMBULATE TO BATHROOM AND BACK TO BED INDEPENDENTLY WITH STEADY GAIT. NO DISTRESS NOTED. DENIES ANY PAIN. CONDITION UNCHANGED. WILL CONTINUE TO MONITOR.
--- NOTE | 2017-11-09 11:45 | NUR ---
DR. MORTENSEN Y AT BEDSIDE REVIEWING PLAN OF CARE WITH PATIENT. WILL CONTINUE TO MONITOR.
[2017-11-09 12:00] VITALS: BP 113/70
--- NOTE | 2017-11-09 14:10 | NUR ---
PATIENT SITTING IN BED COMFORTABLY. NO DISTRESS NOTED. NOTIFIED PATIENT THAT SHE WILL BE GOING HOME TODAY. PATIENT VERBALIZED UNDERSTANDING. PATIENT CALLED DAUGHTER AND DAUGHTER WILL COME PICK HER UP. WILL CONTINUE TO MONITOR.
--- NOTE | 2017-11-09 14:18 | NUR ---
SPOKE WITH ALEX FROM [facility]. SHE SAID TO FAX REVIEW TO HER. PATIENT DISCHARGED TODAY. ER REPORT , H&P AND PROGRESS NOTES FAXED TO [facility] [phone] PHONE ALEX [phone] NO DISCHARGE SUMMARY.
--- NOTE | 2017-11-09 14:58 | NUR ---
PATIENT HAS BEEN SCREENED AND CATEGORIZED MODERATE NUTRITION RISK. PATIENT WILL BE SEEN WITHIN 3-5 DAYS OF ADMISSION. 11/10/17 11/12/[address]
--- NOTE | 2017-11-09 17:05 | NUR ---
PATIENT SITTING IN BED COMFORTABLY. DAUGHTER AT BEDSIDE READY TO TAKE PATIENT HOME. DISCHARGE INSTRUCTIONS PROVIDED IN BULGARIAN, CLASSIFIED AD TAKER SERVICES OFFERED TO PATIENT BUT PREFERRED DAUGHTER TO TRANSLATE. FOLLOW-UP INSTRUCTIONS, NEW/CHANGED MEDICATIONS, DIET REGIMEN, AND DISEASE PROCESS OF UTI EXPLAINED TO PATIENT. ANSWERED ALL OF PATIENT/DAUGHTER'S QUESTIONS REGARDING DISCHARGE. IV SITE REMOVED WITH MINIMAL BLOOD AND LUMEN COMPLETELY INTACT. ID BANDS REMOVED. ALL BELONGINGS WITH PATIENT. ESCORTED PATIENT DOWN TO LOBBY VIA STEADY AMBULATION. PATIENT DISCHARGED TO HOME IN PRIVATE VEHICLE IN STABLE CONDITION AT THIS TIME.
[2017-11-10 08:22] LABS: FOLIC ACID 6.7 ng/mL (>3.0); T4 (THYROXINE) 5.8 ug/dL (4.5-12.0)
== END 2017-11-09 17:05 | disposition home or self-care (01) | DRG 280 ==
LOC: MED 22:38 → MTU 11-08 00:57
PROVIDERS: ADMIT General Practice; ATTEND General Practice
DX: I21.A1 Myocardial infarction type 2 (principal); N17.0 Acute kidney failure with tubular necrosis; E44.1 Mild protein-calorie malnutrition; N39.0 Urinary tract infection, site not specified; M94.0 Chondrocostal junction syndrome [Tietze]; Z88.0 Allergy status to penicillin; Z86.73 Personal history of transient ischemic attack (TIA), and cerebral infarction without residual deficits; G30.9 Alzheimer's disease, unspecified; F02.80 Dementia in other diseases classified elsewhere, unspecified severity, without behavioral disturbance, psychotic disturbance, mood disturbance, and anxiety; E78.5 Hyperlipidemia, unspecified; Z98.51 Tubal ligation status; D64.9 Anemia, unspecified; E83.42 Hypomagnesemia; Z68.25 Body mass index [BMI] 25.0-25.9, adult
CPT/HCPCS: 36415; 71045; 71275; 80048; 80053; 80305; 81001; 82150; 82550; 82553; 82607; 82728; 82746; 83036; 83540; 83690; 83735; 83880; 84100; 84436; 84439; 84443; 84479; 84484; 85025; 85045; 85379; 85610; 85730; 87081; 87086; 93005; 96365; 97140; 99291; J0696; J2270; J7030; J7060; Q0092; Q9967

== ENCOUNTER 2020-11-08 12:00 | Emergency (ER) | payer BC, MEDICAID ==
[~2020-11-08] VITALS: Ht 157.5 cm; Wt 86.2 kg
[~2020-11-08 12:00] MED LIST changes: -ASPI81CT89 PO; -DONE10TA10 PO; +EXE9.5T TD; +FERR324T11 PO; -LEVO750T2 PO; +QUET50TA PO; -SIMV20TA1 PO
[2020-11-08 12:12] VITALS: BP 106/66
--- NOTE | 2020-11-08 12:12 | NUR ---
Patient transferred to bed 9 via wheelchair by tech. RN evaluating the patient at bedside.
--- NOTE | 2020-11-08 12:26 | NUR ---
85/F bib daughter for evaluation of recent falls. Per daughter, pt fell yesterday and has fallen 3 times in the last 3 days with increased weakness. Daughter states the patient cannot tolerate standing anymore for long periods of time. Pt uses a front wheel walker to ambulate. Pt denies any pain at this time. Full ROM of both legs. No swelling noted to either knees. Pt is awake and alert with periods of confusion. Hx Alzhemier's, lives with daughter and her at home. Daughter at bedside.
--- NOTE | 2020-11-08 12:44 | NUR ---
Pt report given to Thelma Zavala. Transfer of care at this time.
--- NOTE | 2020-11-08 12:45 | NUR ---
Dr. Do at the bedside evaluating patient.
[2020-11-08] MEDS ORDERED: NACL 0.9% 1,000 ML IV ONE (13:00)
[2020-11-08] MEDS ORDERED: ACETAMINOPHEN 325 MG TAB PO ONE (13:00)
--- NOTE | 2020-11-08 13:26 | NUR ---
technical support assistant at the bedside
[2020-11-08 13:30] LABS: BASOPHILS # (AUTO) 0.1 K/uL (0.00-0.22); BASOPHILS % (AUTO) 2.1 % (0.0-2.0); EOSINOPHILS # (AUTO) 0.1 K/uL (0-0.4); EOSINOPHILS % (AUTO) 1.7 % (0.0-4.0); HEMATOCRIT 32.1 % (36-48); HEMOGLOBIN 10.3 g/dL (12.0-16.0); LYMPHOCYTES # (AUTO) 1.9 K/uL (2.5-16.5); LYMPHOCYTES % (AUTO) 27.4 % (20.5-51.1); MEAN CORPUSCULAR HEMOGLOBIN 24 pg (27-31); MEAN CORPUSCULAR HGB CONC 32 g/dL (33-37); MEAN CORPUSCULAR VOLUME 75.2 fL (80-94); MONOCYTES # (AUTO) 0.5 K/uL (0.8-1.0); MONOCYTES % (AUTO) 7.7 % (1.7-9.3); NEUTROPHILS # (AUTO) 4.2 K/uL (1.8-7.7); NEUTROPHILS % (AUTO) 61.1 % (42.2-75.2); PLATELET COUNT (AUTO) 331 K/uL (140-450); RED BLOOD CELL COUNT(AUTO) 4.28 MIL/uL (4.20-5.40); RED CELL DISTRIBUTION WIDTH 20.2 % (11.6-13.7); WHITE BLOOD COUNT (AUTO) 6.9 K/uL (4.8-10.8)
[2020-11-08 13:44] LABS: ANION GAP 17.2 (8-16); CARBON DIOXIDE 23.8 mmol/L (21-32); CHLORIDE 107 mmol/L (98-107); CREATININE 1.1 mg/dL (0.6-1.3); GLUCOSE 114 mg/dL (74-106); SODIUM SERUM 144 mmol/L (136-145); UREA NITROGEN, BLOOD 16 mg/dL (7-18)
[2020-11-08] MEDS ORDERED: ASPIRIN 81 MG TAB.CHEW PO ONE (13:55)
[2020-11-08 13:58] LABS: ALBUMIN 3.3 g/dL (3.4-5.0); ASPARTATE AMINOTRANSFERASE 17 U/L (15-37); THYROID STIMULATING HORMONE 1.21 uIU/mL (0.34-3.74); TOTAL BILIRUBIN 0.4 mg/dL (0.0-1.0)
[2020-11-08] MEDS ORDERED: QUET50TA PO ×2 (14:08→17:15)
--- NOTE | 2020-11-08 14:11 | NUR ---
Valerie specimen collected and taken to the lab. Patient tolerated procedure well.
--- NOTE | 2020-11-08 14:17 | NUR ---
Dr. Do at the bedside talking to patient/daughter.
[2020-11-08] MEDS ORDERED: ONDANSETRON 4 MG/2 ML VIAL IVP PRN (14:50)
[2020-11-08] MEDS ORDERED: POTASSIUM CHLORIDE 10 MEQ TABER PO PRN (14:50)
[2020-11-08] MEDS ORDERED: MAGNESIUM OXIDE 400 MG TAB PO PRN (14:50)
[2020-11-08] MEDS ORDERED: MAG SULF 2000 MG/WATER PREMIX 50 ML IV PRN (14:50)
[2020-11-08] MEDS ORDERED: HYDROcodone/APAP 5/325 MG 1 TAB TAB PO PRN (14:50)
[2020-11-08] MEDS ORDERED: IBUPROFEN 400 MG TAB PO PRN (14:50)
[2020-11-08] MEDS ORDERED: KCL 20 MEQ/WATER INJ PREMIX 200 ML IV PRN (14:50)
[2020-11-08] MEDS ORDERED: ACETAMINOPHEN 325 MG TAB PO PRN (14:50)
--- NOTE | 2020-11-08 15:15 | NUR ---
Patient assisted to the restroom to collect urine specimen. Patient back in bed, VSS, bed locked, side rail up and bed in the lowest position. Call light within reach. Patient's daughter at the bedside. urine specimen given to tag and label cutter.
[2020-11-08 15:41] LABS: APPEARANCE,URINE CLEAR (CLEAR); BILIRUBIN,URINE NEGATIVE (NEGATIVE); BLOOD, URINE NEGATIVE (NEGATIVE); COLOR,URINE YELLOW (YELLOW); LEUKOCYTE ESTERASE ,URINE TRACE (NEGATIVE); NITRITE, URINE NEGATIVE (NEGATIVE); UGLUCOSE NEGATIVE (NEGATIVE)
[2020-11-08 16:04] LABS: RBC,URINE NONE SEEN /HPF (0-5); WBC,URINE 0-5 /HPF (0-5)
--- NOTE | 2020-11-08 16:21 | NUR ---
Informed Anthony Ramirez of patient's second troponin level. No new orders at this time.
--- NOTE | 2020-11-08 16:45 | NUR ---
Patient resting comfortably in bed; VSS; call light within reach, bed in the lowest position, side rail up, and daughter at the bedside.
--- NOTE | 2020-11-08 17:07 | NUR ---
Dr. Boyer in ED speaking with family and evaluating patient.
[2020-11-08] MEDS ORDERED: cefTRIAXone 1,000 MG VIAL ONE (17:15)
[2020-11-08] MEDS ORDERED: CEPH-588 PO (17:15)
[2020-11-08 18:02] VITALS: BP 117/88
--- NOTE | 2020-11-08 18:21 | NUR ---
Patient discharged with v/s stable. Written and verbal after care instructions given and explained. Patient alert, oriented and verbalized understanding of instructions. Wheel Chair Assisted with to car. All questions addressed prior to discharge. ID band removed. Patient advised to follow up with PMD. Rx of keflex, seroquel given. Patient/daughter educated on indication of medication including possible reaction and side effects. Opportunity to ask questions provided and answered.
[2020-11-08] MEDS ORDERED: ZOLPIDEM 5 MG TAB PO PRN (21:00)
[2020-11-09] MEDS ORDERED: DOCUSATE SODIUM 100 MG GELCAP PO SCH (09:00)
== END 2020-11-08 15:04 | disposition admitted as inpatient to this hospital (09) ==
LOC: MED 12:00 → MMU 15:03 → UNDOADMIN 15:03 → MMU 15:41 → MTU 15:41 → UNDODISIN 17:47
DX: I24.9 Acute ischemic heart disease, unspecified (principal); R53.1 Weakness; F03.90 Unspecified dementia, unspecified severity, without behavioral disturbance, psychotic disturbance, mood disturbance, and anxiety; D64.9 Anemia, unspecified; M17.12 Unilateral primary osteoarthritis, left knee; Z88.0 Allergy status to penicillin; Z86.73 Personal history of transient ischemic attack (TIA), and cerebral infarction without residual deficits; Z20.822 Contact with and (suspected) exposure to COVID-19
CPT/HCPCS: 36415; 71045; 73030; 73562; 80053; 81001; 84443; 84484; 85025; 87426; 93005; 96361; 96365; 99285; J0696; J7030; J7060; 96374

== ENCOUNTER 2022-05-22 22:48 | Inpatient (IN) | payer BC, MEDICAID ==
[~2022-05-22] VITALS: Ht 157.5 cm; Wt 72.6 kg
[~2022-05-22 22:48] MED LIST changes: +CEPH-588 PO; -EXE9.5T TD; -FERR324T11 PO
[2022-05-22 22:52] VITALS: BP 110/74
--- NOTE | 2022-05-22 22:59 | NUR ---
PT W/C ASSISTED TO BED #2
--- NOTE | 2022-05-22 23:20 | NUR ---
David stuart in ED - 05/23/22 at 0641 by [id number] Patient A/Ox4, chest rise and fall symmetrical, resting in bed, no s/s of distress.
--- NOTE | 2022-05-22 23:21 | NUR ---
Patient is confused, chest rise and fall symmetrical, resting in bed, no s/s of distress.
[2022-05-22] MEDS ORDERED: NACL 0.9% 1,000 ML IV ONE (23:30)
[2022-05-22 23:45] LABS: BASOPHILS % (AUTO) 0.5 % (0.0-2.0); EOSINOPHILS # (AUTO) 0.1 K/uL (0-0.4); EOSINOPHILS % (AUTO) 1.1 % (0.0-4.0); HEMOGLOBIN 9.3 g/dL (12.0-16.0); LYMPHOCYTES # (AUTO) 2.2 K/uL (2.5-16.5); LYMPHOCYTES % (AUTO) 38.6 % (20.5-51.1); MEAN CORPUSCULAR HEMOGLOBIN 22 pg (27-31); MEAN CORPUSCULAR HGB CONC 31 g/dL (33-37); MEAN CORPUSCULAR VOLUME 70.5 fL (80-94); MONOCYTES # (AUTO) 0.5 K/uL (0.8-1.0); MONOCYTES % (AUTO) 9.5 % (1.7-9.3); NEUTROPHILS # (AUTO) 2.9 K/uL (1.8-7.7); NEUTROPHILS % (AUTO) 50.3 % (42.2-75.2); PLATELET COUNT (AUTO) 194 K/uL (140-450); RED BLOOD CELL COUNT(AUTO) 4.26 MIL/uL (4.20-5.40); RED CELL DISTRIBUTION WIDTH 21.3 % (11.6-13.7); WHITE BLOOD COUNT (AUTO) 5.7 K/uL (4.8-10.8)
[2022-05-23 00:23] LABS: ALBUMIN 2.8 g/dL (3.4-5.0); ANION GAP 12.1 (8-16); ASPARTATE AMINOTRANSFERASE 40 U/L (15-37); CARBON DIOXIDE 28.9 mmol/L (21-32); CHLORIDE 105 mmol/L (98-107); GLUCOSE 101 mg/dL (74-106); SODIUM SERUM 142 mmol/L (136-145); TOTAL BILIRUBIN 0.5 mg/dL (0.0-1.0); UREA NITROGEN, BLOOD 16 mg/dL (7-18)
--- NOTE | 2022-05-23 01:10 | NUR ---
Patient is confused, chest rise and fall symmetrical, resting in bed, no s/s of distress.
[2022-05-23 01:15] LABS: APPEARANCE,URINE CLEAR (CLEAR); BILIRUBIN,URINE NEGATIVE (NEGATIVE); BLOOD, URINE NEGATIVE (NEGATIVE); COLOR,URINE YELLOW (YELLOW); LEUKOCYTE ESTERASE ,URINE 3+ (NEGATIVE); NITRITE, URINE POSITIVE (NEGATIVE); PH,URINE 6.5 (5.0-9.0); UGLUCOSE NEGATIVE (NEGATIVE)
[2022-05-23 01:32] LABS: RBC,URINE 0-5 /HPF (0-5)
[2022-05-23] MEDS ORDERED: LEVOFLOXACIN 500 MG/D5W PREMIX 100 ML IV ONE (02:20)
--- NOTE | 2022-05-23 03:20 | NUR ---
Patient is confused, chest rise and fall symmetrical, resting in bed, no s/s of distress.
[2022-05-23] MEDS ORDERED: SIMV-372 PO (03:24)
[2022-05-23] MEDS ORDERED: MAG SULF 2000 MG/WATER PREMIX 50 ML IV PRN (03:25)
[2022-05-23] MEDS ORDERED: MORPHINE SULFATE 4 MG/ML SYR IVP PRN (03:25)
[2022-05-23] MEDS ORDERED: KCL 20 MEQ/WATER INJ PREMIX 200 ML IV PRN (03:25)
[2022-05-23] MEDS ORDERED: HYDROcodone/APAP 5/325 MG 1 TAB TAB PO PRN (03:25)
[2022-05-23] MEDS ORDERED: POTASSIUM CHLORIDE 10 MEQ TABER PO PRN (03:25)
[2022-05-23] MEDS ORDERED: MAGNESIUM OXIDE 400 MG TAB PO PRN (03:25)
[2022-05-23] MEDS: NACL 0.9% 1,000 ML IV SCH ×2 (03:25→15:55)
[2022-05-23] MEDS ORDERED: ACETAMINOPHEN 325 MG TAB PO PRN (03:25)
--- NOTE | 2022-05-23 05:15 | NUR ---
Patient is confused, chest rise and fall symmetrical, resting in bed, no s/s of distress.
--- NOTE | 2022-05-23 06:42 | NUR ---
Patient is confused, chest rise and fall symmetrical, resting in bed, no s/s of distress.
--- NOTE | 2022-05-23 07:18 | NUR ---
Change of shift report given to AM shift nurse Anjana RN. AM shift nurse Anjana RN verbalized understanding of report, no further questions.
[2022-05-23] MEDS ORDERED: ECOTRIN 81 MG TABEC PO SCH (08:29)
[2022-05-23] MEDS: ENOXAPARIN 40 MG/0.4 ML SYR SUBQ SCH (09:00)
--- NOTE | 2022-05-23 13:01 | NUR ---
REPORTED TROPONIN LAB VALUE TO DR. GILLETTE, NO NEW ORDERS AT THIS TIME. DR. GILLETTE WILL SEE PATIENT.
[2022-05-23] MEDS: NITROGLYCERIN 0.4 MG TAB SL PRN ×2 (13:50→14:14)
--- NOTE | 2022-05-23 15:04 | NUR ---
Echocardogram completed at bedside, verbal EF 55% per tech. Patientm was c/o chest pain during echo and was given NTG sl x 2 with improvement. Patient continues confused, has difficulty cooperating with po meds and pulled IV out when left alone. Family currently at bedside
--- NOTE | 2022-05-23 15:57 | NUR ---
PATIENT HAS BEEN SCREENED AND CATEGORIZED LOW NUTRITION RISK. PATIENT WILL BE SEEN WITHIN 7 DAYS OF ADMISSION. 05/30/[address]
--- NOTE | 2022-05-23 20:03 | NUR ---
Patient will be admitted to care of KEVIN GILLETTE. Admited to TELEMETRY. Will go to room 110A. Belongings list completed. Report to SRINIVASAN.
--- NOTE | 2022-05-23 20:20 | NUR ---
PT TRANSPORTED FROM ER VIA GURNEY. PT IS AAOX2 CZECH SPEAKER. PT IS ON RA. PT NOT IN ANY RESPIRATORY DISTRESS. PT HAS RIGHT AC 20 GAUGE WITH NS 80 CC/HR. PT CAME IN FOR FALL FROM HOME. CALL LIGHT WITHIN REACH. SAFETY MEASURES TAKEN. WILL CONTINUE TO MONITOR THE PT.
[2022-05-23 20:29] VITALS: BP 123/69
--- NOTE | 2022-05-23 21:45 | NUR ---
PT KEPT BENDING ARM CAUSING THE IV PUMP TO STOP WORKING DUE TO HIGH PRESSURE EVEN WITH CONSTANT REMINDER. NEW IV INSERTED ON RIGHT FOREARM 24 GAUGE. PATENT AND INTACT.
[2022-05-24] VITALS: BP 123/61
[2022-05-24] MEDS: LEVOFLOXACIN 250 MG/D5 PREMIX 100 ML IV SCH (01:57)
--- NOTE | 2022-05-24 02:50 | NUR ---
OBSERVED PT. PT IS SLEEPING COMFORTABLY IN BED. PT NOT IN ANY RESPIRATORY DISTRESS. CALL LIGHT WITHIN REACH. WILL CONTINUE TO MONITOR THE PT.
[2022-05-24 04:00] VITALS: BP 131/65
[2022-05-24] MEDS: NACL 0.9% 1,000 ML IV SCH ×2 (04:25→22:09)
--- NOTE | 2022-05-24 04:50 | NUR ---
PT WAS CLEANED AND CHANGED. TOLERATED IT WELL. IVF INFUSING PER MD ORDER. SAFETY PRECAUTIONS TAKEN. WILL CONTINUE TO MONITOR THE PT.
[2022-05-24 06:28] LABS: BASOPHILS % (AUTO) 0.5 % (0.0-2.0); EOSINOPHILS % (AUTO) 0.9 % (0.0-4.0); HEMATOCRIT 25.2 % (36-48); HEMOGLOBIN 7.9 g/dL (12.0-16.0); LYMPHOCYTES # (AUTO) 1.8 K/uL (2.5-16.5); LYMPHOCYTES % (AUTO) 38.4 % (20.5-51.1); MEAN CORPUSCULAR HEMOGLOBIN 22 pg (27-31); MEAN CORPUSCULAR HGB CONC 31 g/dL (33-37); MEAN CORPUSCULAR VOLUME 71.6 fL (80-94); MONOCYTES # (AUTO) 0.5 K/uL (0.8-1.0); MONOCYTES % (AUTO) 11.5 % (1.7-9.3); NEUTROPHILS # (AUTO) 2.3 K/uL (1.8-7.7); NEUTROPHILS % (AUTO) 48.7 % (42.2-75.2); PLATELET COUNT (AUTO) 178 K/uL (140-450); RED BLOOD CELL COUNT(AUTO) 3.52 MIL/uL (4.20-5.40); RED CELL DISTRIBUTION WIDTH 21.7 % (11.6-13.7); WHITE BLOOD COUNT (AUTO) 4.7 K/uL (4.8-10.8)
[2022-05-24 06:54] LABS: ALBUMIN 2.1 g/dL (3.4-5.0); ANION GAP 8.7 (8-16); ASPARTATE AMINOTRANSFERASE 34 U/L (15-37); CHLORIDE 110 mmol/L (98-107); CREATININE 0.8 mg/dL (0.6-1.3); GLUCOSE 90 mg/dL (74-106); MAGNESIUM 1.7 mg/dL (1.8-2.4); POTASSIUM 3.7 mmol/L (3.5-5.1); SODIUM SERUM 140 mmol/L (136-145); TOTAL BILIRUBIN 0.6 mg/dL (0.0-1.0); UREA NITROGEN, BLOOD 8 mg/dL (7-18)
--- NOTE | 2022-05-24 07:24 | NUR ---
ENDORSED PT TO DAY SHIFT RN FOR CONTINUITY OF CARE. PT IS STABLE.
--- NOTE | 2022-05-24 07:45 | NUR ---
RECEIVED PT AWAKE, AND ALERT. NO RESPIRATORY DISTRESS ON ROOM AIR. SINUS RHYTHM ON TELE MONITOR. ABD SOFT WITH ACTIVE BOWEL SOUNDS. INCONTINENT BOWEL AND BLADDER. KEPT CLEAN AND DRY. PERIPHERAL IV 20 GAUGE ON RIGHT AC SALINE LOCK. PERIPHERAL IV 24 GAUGE ON RIGHT FOREARM INTACT AND PATENT INFUSING NS@80ML/HR. SAFETY PRECAUTIONS IN PLACE.
[2022-05-24 08:00] VITALS: BP 107/63
[2022-05-24] MEDS: ENOXAPARIN 40 MG/0.4 ML SYR SUBQ SCH (08:36)
--- NOTE | 2022-05-24 11:20 | NUR ---
DR. GILLETTE AT BEDSIDE EXAMINING PATIENT. DAUGHTER FANY AT BEDSIDE AND WANTS PT DNR AND HOSPICE CARE. NEW ORDER RECEIVED.
--- NOTE | 2022-05-24 11:41 | NUR ---
SPOKE TO NATASHA FROM [facility] AND NATASHA STATED SHE WILL REACH OUT TO DAUGHTER. DR. GILLETTE WANTS TO KEEP PT HERE IN HOSPITAL FOR ANOTHER DAY AND PT NOT READY FOR DISCHARGE TO HOSPICE TODAY.
[2022-05-24 12:00] VITALS: BP 138/73
[2022-05-24 16:00] VITALS: BP 135/69
--- NOTE | 2022-05-24 16:30 | NUR ---
SPOKE TO NATASHA FROM [facility]. PER NATASHA, DR. GILLETTE WILL PUT DISCHARGE ORDERS IN FOR TOMORROW AND TRANSPORTATION WITH [facility] IS ARRANGED WELL DME. DAUGHTER FANY IS AWARE OF PLANS FOR DISCHARGE AND HOSPICE. [facility] #: .
--- NOTE | 2022-05-24 16:40 | NUR ---
SEEN AND EXAMINED BY DR. DELEON.
--- NOTE | 2022-05-24 19:31 | NUR ---
ENDORSED TO FIGURE CLERK NURSE CESEAR FOR CONTINUITY OF CARE.
--- NOTE | 2022-05-24 19:35 | NUR ---
RECEIVED BEDSIDE REPORT FROM DAY SHIFT RN FOR CONTINUITY OF CARE. PT IS AWAKE AND ALERT WITH SON BY BEDSIDE. PT IS ON RA NOT IN ANY RESPIRATORY DISTRESS. PT HAS RIGHT AC 20 GAUGE AND RIGHT FOREARM 24 GAUGE RUNNING NS 40 CC/HR. CALL LIGHT WITHIN REACH. WILL CONTINUE TO MONITOR THE PT.
[2022-05-24 20:00] VITALS: BP 140/69
--- NOTE | 2022-05-24 22:30 | NUR ---
PT WAS CLEANED AND CHANGED. TOLERATED IT WELL. WILL CONTINUE TO MONITOR THE PT.
[2022-05-25] VITALS: BP 127/54
[2022-05-25] MEDS: LEVOFLOXACIN 250 MG/D5 PREMIX 100 ML IV SCH (02:24)
--- NOTE | 2022-05-25 02:30 | NUR ---
SCHEDULE MEDICATION GIVEN. NO ADVERSE REACTION NOTED. WILL CONTINUE TO MONITOR THE PT.
[2022-05-25 04:00] VITALS: BP 138/73
--- NOTE | 2022-05-25 04:30 | NUR ---
PT OBSERVED. PT IS SLEEPING COMFORTABLY IN BED. PT NOT IN ANY DISTRESS. BREATHING EVEN AND UNLABORED. WILL CONTINUE TO MONITOR THE PT.
[2022-05-25 06:51] LABS: HEMATOCRIT 27.4 % (36-48); HEMOGLOBIN 8.6 g/dL (12.0-16.0); MEAN CORPUSCULAR HEMOGLOBIN 23 pg (27-31); MEAN CORPUSCULAR HGB CONC 31 g/dL (33-37); PLATELET COUNT (AUTO) 151 K/uL (140-450); RED BLOOD CELL COUNT(AUTO) 3.81 MIL/uL (4.20-5.40); RED CELL DISTRIBUTION WIDTH 20.9 % (11.6-13.7); WHITE BLOOD COUNT (AUTO) 5.6 K/uL (4.8-10.8)
[2022-05-25 07:07] LABS: ALBUMIN 2.3 g/dL (3.4-5.0); ANION GAP 11.2 (8-16); ASPARTATE AMINOTRANSFERASE 32 U/L (15-37); CARBON DIOXIDE 26.1 mmol/L (21-32); CHLORIDE 106 mmol/L (98-107); CREATININE 0.7 mg/dL (0.6-1.3); GLUCOSE 84 mg/dL (74-106); MAGNESIUM 1.5 mg/dL (1.8-2.4); POTASSIUM 3.3 mmol/L (3.5-5.1); SODIUM SERUM 140 mmol/L (136-145); TOTAL BILIRUBIN 0.7 mg/dL (0.0-1.0); UREA NITROGEN, BLOOD 5 mg/dL (7-18)
--- NOTE | 2022-05-25 07:10 | NUR ---
RECEIVED REPORT FROM PROVIDER RELATIONS ADVOCATE NURSE PRINCESS FOR CONTINUITY OF CARE. PT IS RESTING IN BED AND STABLE. NO SIGNS OF DISTRESS OR LABORED BREATHING.
--- NOTE | 2022-05-25 07:20 | NUR ---
ENDORSED PT TO DAY SHIFT RN FOR CONTINUITY OF CARE. PT IS STABLE.
[2022-05-25 08:00] VITALS: BP 125/63
[2022-05-25 08:34] LABS: LYMPHOCYTES % (MANUAL) 30 % (20-46); MONOCYTES % (MANUAL) 4 % (5-12)
[2022-05-25] MEDS: ENOXAPARIN 40 MG/0.4 ML SYR SUBQ SCH (08:50)
[2022-05-25] MEDS ORDERED: ECOTRIN 81 MG TABEC PO SCH (09:00)
[2022-05-25] MEDS ORDERED: LEVO250T89 PO (09:20)
[2022-05-25 09:21] VITALS: BP 138/73
== END 2022-05-25 09:55 | disposition home or self-care (01) | DRG 689 ==
LOC: MED 22:48 → MTU 05-23 03:23
PROVIDERS: ADMIT Hospitalist; ATTEND Hospitalist
DX: N39.0 Urinary tract infection, site not specified (principal); I21.A1 Myocardial infarction type 2; G93.40 Encephalopathy, unspecified; I11.0 Hypertensive heart disease with heart failure; I25.5 Ischemic cardiomyopathy; Z66 Do not resuscitate; F03.90 Unspecified dementia, unspecified severity, without behavioral disturbance, psychotic disturbance, mood disturbance, and anxiety; I50.9 Heart failure, unspecified; Z20.822 Contact with and (suspected) exposure to COVID-19; E78.5 Hyperlipidemia, unspecified; B96.20 Unspecified Escherichia coli [E. coli] as the cause of diseases classified elsewhere; Z86.79 Personal history of other diseases of the circulatory system; Z88.0 Allergy status to penicillin
CPT/HCPCS: 36415; 70450; 71045; 72125; 80053; 81001; 83605; 83735; 84484; 85025; 87040; 87081; 87086; 93005; 96361; 96365; 99285; J1650; J1956; Q0092